=== PATIENT | female | born 1935 | race Caucasian/White ===

== ENCOUNTER 2020-05-11 14:18 | Emergency (ER) | payer MEDICARE, OTHER ==
[~2020-05-11] VITALS: Ht 154.9 cm; Wt 63.5 kg
[2020-05-11] MEDS ORDERED: LEVO-T50 MCG PO (14:28)
[2020-05-11] MEDS ORDERED: PRAVASTATIN SOD20 MG PO (14:28)
[2020-05-11] MEDS ORDERED: "\\\"BLOOD PRESSURE MED\\\"" (14:28)
[2020-05-11] MEDS ORDERED: FUROSEMIDE 20 M20 MG PO (14:29)
[2020-05-11 14:42] LABS: HEMATOCRIT 38.4 % (37.0-47.0); HEMOGLOBIN 13.3 gm/dL (12.0-15.0); MCH 28.8 pg (26.0-34.0); MCHC 34.8 g/dL (28.0-37.0); MPV 7.9 fl. (7.2-11.1); NUCLEATED RBCS 0 /100WBC; PLATELET COUNT* 263 thou/uL (150-400); RBC 4.62 mil/uL (4.20-5.00); RDW-CV 14.1 % (10.5-14.5); WBC 9.1 thou/uL (4.0-11.0)
[2020-05-11 14:53] LABS: CALCIUM 8.7 mg/dL (8.5-10.1); POTASSIUM 3.3 mmol/L (3.5-5.1)
[2020-05-11 14:55] LABS: APTT 25.9 Seconds (25.0-31.3); PROTIME 10.7 Seconds (9.20-11.50)
[2020-05-11 15:07] LABS: ALBUMIN 3.6 g/dL (3.4-5.0); CK-MB MASS 2.1 ng/mL (<0.5-3.6); MAGNESIUM 1.7 mg/dL (1.8-2.4); TOTAL BILIRUBIN 0.4 mg/dL (<0.1-1.0); TOTAL PROTEIN 7.7 g/dL (6.4-8.2)
[2020-05-11 15:21] LABS: ABSOLUTE EOSINOPHILS 0.9 thou/uL (0.0-0.7); ABSOLUTE LYMPHOCYTES 3.8 thou/uL (0.8-5.3); ABSOLUTE MONOCYTES 0.3 thou/uL (0.0-1.2); ABSOLUTE NEUTROPHILS 4.1 thou/uL (1.6-8.1); PLATELET ESTIMATE ADEQUATE
[2020-05-11 17:58] VITALS: BP 139/69
--- NOTE | 2020-05-12 09:55 | EKG ---
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 : 1935 Requested By: Jeff Charles Order Number: [id number] MD: Alexandro Schwartz Measurements Intervals Hartman Rate: 75 P: 56 NC: 205 QRS: -22 QRSD: 93 T: 4 QT: 393 QTc: 439 Interpretive Statements Sinus rhythm Borderline left axis deviation Minimal ST elevation, inferior leads Baseline wander in lead(s) III,aVL,aVF No previous ECG available for comparison Electronically Signed On 05-12-2020 9:55:38 CDT by Alexandro Schwartz [email or web address] <ELECTRONICALLY SIGNED> By: Alexandro Schwartz MD, [facility] 05/12/20 0955 1424 1424 Alexandro Schwartz MD, [facility] /EPI
== END 2020-05-11 17:59 | disposition home or self-care (01) ==
LOC: M.ERS 14:18
PROVIDERS: Family Medicine
DX: R07.89 Other chest pain (principal); Z20.828 Contact with and (suspected) exposure to other viral communicable diseases; I10 Essential (primary) hypertension; Z90.89 Acquired absence of other organs; Z90.721 Acquired absence of ovaries, unilateral